=== PATIENT | male | born 1960 | race Native Hawaiian/Other Pacific Islander ===

== ENCOUNTER 2018-11-07 16:11 | Outpatient (CLI) | payer BC | END 2018-11-07 16:12 | disposition critical access hospital (66) | LOC: EMS 16:11 | PROVIDERS: ATTEND Surgery | DX: R42 Dizziness and giddiness (principal); R11.2 Nausea with vomiting, unspecified | CPT/HCPCS: A0425; A0429 ==

== ENCOUNTER 2018-11-07 16:17 | Emergency (ER) | payer BC ==
[2018-11-07] MEDS ORDERED: ONDANSETRON ODT 4 MG TABLET TL STA (16:21)
[2018-11-07] MEDS ORDERED: MECLIZINE 12.5 MG TABLET PO STA ×3 (16:22→20:07)
--- NOTE | 2018-11-07 16:25 | ED Physician Documentation ---
History of Present Illness - Stated complaint Stated Complaint: DIZZY - History obtained from History obtained from: Patient - History of Present Illness Timing: Today Pain level max: 0 Pain level now: 0 - Additonal information Additional information: 58-year-old male with sudden onset of room spinning around him today. Accompanied by nausea. Worse with any movement. Better with lying at rest with his eyes closed. Has had recent URI symptoms as well. Some nasal congestion and cough. No fevers. No vomiting. No changes in his medications. No focal numbness or weakness. Review of Systems Constitutional: denies: Fever, Chills GI: denies: Vomiting, Diarrhea Skin: denies: Rash Musculoskeletal: denies: Neck pain, Back pain Neurologic: denies: Focal weakness, Numbness, Headache, Head injury, LOC PD PAST MEDICAL HISTORY - Past Medical History Past Medical History: Yes Cardiovascular: Hypertension - Present Medications Home Medications: Ambulatory Orders Medication Instructions Recorded Confirmed Hydrochlorothiazide 12.5 mg PO 11/07/18 11/07/18 Losartan [Cozaar] 50 mg PO DAILY 11/07/18 11/07/18 Meclizine HCl 25 mg PO Q6H PRN #30 tab.chew 11/07/18 Ondansetron Odt [Zofran] 4 mg TL Q6H PRN #10 tablet 11/07/18 - Allergies Allergies/Adverse Reactions: Allergies Allergy/AdvReac Type Severity Reaction Status Date / Time No Known Drug Allergies Allergy Verified 11/07/18 16:24 - Living Situation Living Situation: reports: With family Living Arrangement: reports: At home - Social History Does the pt have substance abuse?: No - Family History Family history: reports: Non contributory PD ED PE NORMAL - Vitals Vital signs reviewed: Yes - General General: Alert and oriented X 3, No acute distress, Well developed/nourished - HEENT HEENT: PERRL, Ears normal, Moist mucous membranes, Pharynx benign, Other (Positive Hallpike to the left) - Neck Neck: Supple, no meningeal sign, No bony TTP - Cardiac Cardiac: RRR, Strong equal pulses - Respiratory Respiratory: No respiratory distress, Clear bilaterally - Abdomen Abdomen: Soft, Non tender, Non distended - Derm Derm: Warm and dry - Extremities Extremities: No edema, No calf tenderness / cord - Neuro Neuro: Alert and oriented X 3, bryologist 2-12 intact, No motor deficit, No sensory deficit, Normal speech - Psych Psych: Normal mood, Normal affect Results - Vitals Vitals: Vital Signs - 24 hr 11/07/18 11/07/18 11/07/18 16:22 18:34 18:39 Temperature 35.5 C L Heart Rate 54 L 69 Respiratory 20 16 Rate Blood Pressure 190/97 H 172/103 H O2 Saturation 100 100 11/07/18 11/07/18 11/07/18 19:34 20:27 20:41 Temperature 36.3 C L Heart Rate 62 58 L 72 Respiratory 14 15 18 Rate Blood Pressure 167/74 H 167/91 H 172/90 H O2 Saturation 98 97 97 Oxygen O2 Source Room air PD MEDICAL DECISION MAKING - ED course Complexity details: re-evaluated patient, considered differential, d/w patient ED course: 58-year-old male with BPPV affecting the left ear. Given Phenergan and meclizine. Symptoms improved. Half somersault maneuver was used for repositioning. This did improve his symptoms. We will continue meclizine at home and follow-up with his doctor. No evidence of stroke. Patient counseled regarding signs and symptoms for which I believe and urgent re-evaluation would be necessary. Patient with good understanding of and agreement to plan and is comfortable going home at this time This document was made in part using voice recognition software. While efforts are made to proofread this document, sound alike and grammatical errors may occur. Departure - Departure Disposition: 01 Home, Self Care Clinical Impression: BPPV (benign paroxysmal positional vertigo) Qualifiers: Laterality: left Qualified Code(s): H81.12 - Benign paroxysmal vertigo, left ear Condition: Good Instructions: ED BPV Vertigo Follow-Up: your,doctor in 1 week [Other] Prescriptions: Meclizine HCl 25 mg PO Q6H PRN #30 tab.chew PRN Reason: Vertigo Ondansetron Odt [Zofran] 4 mg TL Q6H PRN #10 tablet PRN Reason: Nausea / Vomiting Comments: Go home and rest. This should improve over the next 24 to 48 hours. You can try the Alvaro maneuver at home as well. There is a YouTube video on this. Your left ear is affected Discharge Date/Time: 11/07/18 21:31
[2018-11-07] MEDS ORDERED: PROMETHAZINE 25 MG/1 ML VIAL IM STA (16:56)
[2018-11-07 20:42] VITALS: BP 172/90
== END 2018-11-07 21:31 | disposition home or self-care (01) ==
LOC: ED 16:17
DX: H81.12 Benign paroxysmal vertigo, left ear (principal); I10 Essential (primary) hypertension; R09.81 Nasal congestion; R05 Cough
CPT/HCPCS: 96372; 99283; A9270; Q0162

== ENCOUNTER 2021-09-01 08:00 | Outpatient (CLI) | payer BC ==
[2021-09-01 17:08] LABS: ALBUMIN 4.3 g/dL (3.2-5.5); ALBUMIN/GLOBULIN RATIO 1.3 (1.0-2.2); BILIRUBIN,TOTAL 0.8 mg/dL (0.2-1.0); CREATININE 0.9 mg/dL (0.6-1.2); POTASSIUM 4.1 mmol/L (3.5-5.0); TOTAL PROTEIN 7.7 g/dL (6.7-8.2)
[2021-09-01 17:20] LABS: BASOPHILS # (AUTO) 0.1 10^3/uL (0.0-0.1); BASOPHILS % (AUTO) 1.1 %; EOSINOPHILS # (AUTO) 0.3 10^3/uL (0.0-0.7); EOSINOPHILS % (AUTO) 3.2 %; LYMPHOCYTES # (AUTO) 1.4 10^3/uL (1.5-3.5); LYMPHOCYTES % (AUTO) 17.4 %; MEAN CORPUSCULAR HEMOGLOBIN 29.9 pg (27.0-31.0); MEAN CORPUSCULAR VOLUME 87.9 fL (80.0-94.0); MEAN PLATELET VOLUME 10.6 fL (7.4-11.4); MONOCYTES # (AUTO) 0.6 10^3/uL (0.0-1.0); MONOCYTES % (AUTO) 7.4 %; NEUTROPHILS # (AUTO) 5.8 10^3/uL (1.5-6.6); NEUTROPHILS % (AUTO) 70.7 %; PLT - PLATELET COUNT 255 10^3/uL (130-450); RED BLOOD COUNT 5.35 10^6/uL (4.70-6.10); RED CELL DISTRIBUTION WIDTH 13.4 % (12.0-15.0); WHITE BLOOD COUNT 8.2 x10^3/uL (4.8-10.8)
[2021-09-01 17:25] LABS: THYROID STIMULATING HORMONE 1.17 uIU/mL (0.34-5.60)
[2021-09-01 20:16] LABS: ESTIMATED AVERAGE GLUCOSE 120 mg/dL (70-100); HEMOGLOBIN A1c% 5.8 % (4.27-6.07)
== END 2021-09-01 23:59 | disposition home or self-care (01) ==
LOC: LAB.N 08:00
PROVIDERS: ATTEND Family Medicine
DX: R42 Dizziness and giddiness (principal)
CPT/HCPCS: 36415; 80053; 83036; 84443; 85025; 85651